=== PATIENT | female | born 1940 | race African-American/Black ===

== ENCOUNTER 2023-06-23 18:06 | Emergency (ER) | payer OTHER, MEDICAID ==
[~2023-06-23] VITALS: Ht 157.5 cm; Wt 85.0 kg
[2023-06-23 18:14] VITALS: O2SAT 97
[2023-06-23 18:52] LABS: HEMOGLOBIN. 14.3 g/dL (12.0-16.0); RED BLOOD CELL COUNT 4.72 mill/uL (4.2-5.4); WHITE BLOOD COUNT 8.2 x1000/uL (4.5-11.0)
[2023-06-23 18:53] LABS: BASOPHILS % 0.4 % (0.0-2.0); EOSINOPHILS % 3.2 % (0.0-5.0); HEMATOCRIT. 42.3 % (36.0-48.0); LYMPHOCYTES % 22.1 % (20.0-50.0); MEAN CORPUSCULAR HEMOGLOBIN 30.4 pg (28.0-32.0); MEAN CORPUSCULAR HGB CONC 33.9 g/dL (31.0-37.0); MEAN CORPUSCULAR VOLUME 89.6 fL (81.0-99.0); MEAN PLATELET VOLUME 9.2 fl (7.4-10.4); MONOCYTES % 6.5 % (2.0-8.0); NEUTROPHILS % 67.8 % (40.0-76.0); PLATELET 206 x1000/uL (130-400); RED CELL DISTRIBUTION WIDTH 14.9 % (11.6-14.6)
[2023-06-23 19:11] LABS: TROPONIN I HIGH SENSITIVITY 8 ng/L (3.0-34)
[2023-06-23 19:46] LABS: CHLORIDE 105 mEq/L (98-107); SODIUM 142 mEq/L (136-145)
[2023-06-23 19:47] LABS: CALCIUM 9.9 mg/dL (8.7-10.4); CARBON DIOXIDE 31 mEq/L (21-32)
[2023-06-23 19:52] LABS: GLUCOSE 134 mg/dL (70-105); UREA NITROGEN BLOOD 10 mg/dL (9-23)
[2023-06-23 19:54] LABS: ALANINE AMINOTRANSFERASE 28 IU/L (10-49); ALBUMIN 4.5 g/dL (3.2-4.8); ASPARTATE AMINOTRANSFERASE 20 IU/L (<34); PROTEIN TOTAL 7.4 g/dL (6.0-8.3)
[2023-06-23 21:35] LABS: TROPONIN I HIGH SENSITIVITY 9 ng/L (3.0-34)
[2023-06-23] MEDS: CLONIDINE 0.2MG TABLET PO ONE (21:53)
[2023-06-23 22:52] VITALS: BP 135/67; PULSE 78; RESP 16; TEMP 98.1
== END 2023-06-23 23:38 | disposition home or self-care (01) ==
LOC: ER 18:06
DX: I10 Essential (primary) hypertension (principal)
CPT/HCPCS: 36415; 71045; 80053; 83880; 84484; 85025; 93005; 99285